=== PATIENT | female | born 1990 | race Caucasian/White ===

== ENCOUNTER 2018-09-15 10:30 | Emergency (ER) | payer MEDICAID, SELFPAY ==
[2018-09-15 10:32] VITALS: BP 123/52; PULSE 77; RESP 12; TEMP 35.8; O2SAT 98; BMI 28.4
--- NOTE | 2018-09-15 11:17 | ED.VISSUMM ---
- ER Visit Summary Date of Service: 09/15/18 Chief Complaint: Flank pain History of Present Illness: The patient is a 27 F to 12 weeks . Ab0. 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 Also gestational diabetes. States she has had nausea and vomiting throughout this . Today she had flank pain. Want to the [facility] found to have some blood in her urine and they sent her to be evaluated. She denies any dysuria. No history of stones. Denies any fever. She has had diarrhea also. Physical Examination: Well-appearing young female. Vital signs are stable. She is afebrile. She does not look septic or toxic. No acute distress. She is actively vomiting at times. H EENT exam unremarkable. Neck nontender no lymphadenopathy. Lungs clear to auscultation bilaterally. Heart regular rhythm no murmur. Abdomen is soft. Nondistended normal bowel sounds no peritoneal signs. Gravid nontender uterus. No right lower quadrant tenderness. Patient is moving all 4 extremities. They are neurovascularly intact. Calves nontender and no edema. Back exam nontender no CVA tenderness. Neurologically she is awake and alert with no focal motor deficit. Test Results: BC normal white count of 10. Hemoglobin 13. Electrolytes unremarkable gap of 10. Creatinine 0.54. Glucose is 77. UA normal. No nitrates. No white or red cells no bacteria. Given that the patient has normal workup. And that she is I do not feel that she needs a flank study. I think the risk of radiation to the unborn child outweighs any benefit at this time. Emergency Department Course and Treatment: Treated with IV fluids. IV Zofran. Screening labs will be obtained. Along with a urinalysis. On repeat exam she is doing well at 1227. She states she is feeling better. She and I discussed all of her test results. Treatment Plan: Zofran as needed for nausea. Fluids and rest. Follow-up with her INSTRUCTIONAL DESIGN SPECIALIST. Disposition: Discharge Impression: Acute left flank pain of uncertain etiology Acute nausea vomiting Currently 12 weeks History of -induced cardiomyopathy and prior gestational diabetes This note was generated with [employer] software. It may contain incorrect words, spelling, and punctuation that were not noted in review of the chart prior to signing ED Disposition - Plan for ED Patient: Chief Complaint: Flank Pain Referrals: Ming Maldonado MD [Primary Care Provider] -
[2018-09-15 11:30] LABS: Bacteria 0 SEEN /hpf (None Seen); Mucous, Urine 0 SEEN /hpf (<or=2+); White Blood Cells 0 SEEN /hpf (0-5)
[2018-09-15] MEDS: Ondansetron 4 MG/2 ML Vial IV (11:30)
[2018-09-15] MEDS: 0.9% Normal Saline 1,000 ML 1000 ML IV (11:30)
[2018-09-15 11:33] LABS: Absolute Lymphocyte Count 1.96 X10^3/ul (0.83-4.51); Absolute Neutrophil Count 6.9 X10^3/uL (2.0-7.7); Basophil# 0.05 X10^3/uL; Basophil% 0.5 % (0-1); Color, Urine Yellow (Yellow); Eosinophil# 0.54 X10^3/uL; Eosinophils% 5.4 % (0-5); Glucose, Dipstick Normal (Normal); Hematocrit 40.1 % (37-47); Hemoglobin 13.4 g/dl (12.0-15.0); Ketone-Dipstick Negative (Negative); Leukocyte Esterase-Dipstick Negative /ul (Negative); Lymphocyte # 1.96 X10^3/ul (4.0); Lymphocyte % 19.7 % (19-41); Mean Corp Hgb Conc 33.4 g/gl (32-36); Mean Corpuscular Hgb 27.5 pg (27.0-32.0); Mean Corpuscular Volume 82.2 fL (81-99); Mean Platelet Vol. 11.7 fl (6.2-12.0); Monocyte# 0.55 X10^3/uL; Monocyte% 5.5 % (0-10); Neutrophil # 6.85 X10^3/uL (2.7-7.7); Neutrophil % 68.7 % (47-70); Nitrite-Dipstick Negative (Negative); Occult Blood-Urine 10 /ul (Negative); POSITIVE COUNT NO; POSITIVE DIFFERENTIAL NO; POSITIVE MORPHOLOGY NO; Platelet Count 263 K/mm3 (150-450); Protein-Dipstick Negative (Negative); RBC Distribution Width CV 13.5 % (11.6-14.6); RBC Distribution Width SD 40.3 fl (35.1-43.9); Red Blood Count 4.88 M/mm3 (4.2-5.4); Specific Gravity, Urine 1.015 (1.002-1.030); Urine Bilirubin Dipstick Negative (Negative); Urine Clarity Sl. Cloudy (Clear); Urine Urobilinogen Normal (Normal)
[2018-09-15] MEDS: Morphine 4 MG/ML Syringe IV (11:38)
[2018-09-15 11:42] LABS: Red Blood Cells-Urine 0-5 SEEN /hpf (0-5); Squamous Epithelial Cells - UA 0-5 SEEN /hpf (5-10)
[2018-09-15 11:45] LABS: Anion Gap 10 (5-15); BUN 7 mg/dL (7-18); BUN/Creat Ratio 13.1 RATIO (10-20); Calcium,Total 8.6 mg/dL (8.5-10.1); Chloride 106 mmol/L (98-107); Creatinine, Serum 0.54 mg/dL (0.55-1.02); EST Glomerular Filtration Rate 142 mL/min (>60); Est Glom Filt Rate - Afr Amer 172 mL/min (>60); Glucose 77 mg/dL (74-106); Potassium 3.8 mmol/L (3.5-5.1); Sodium Level 139 mmol/L (136-145)
--- NOTE | 2018-09-15 12:30 | ED.DEP ---
ED Disposition - Plan for ED Patient: Disposition: Home or Assisted Living Chief Complaint: Flank Pain Instructions: ED Flank Pain Uncertain Cause Prescriptions: Ondansetron [Zofran Odt] 4 mg PO Q8H PRN PRN #10 tab PRN Reason: Nausea Referrals: Ming Maldonado MD [Primary Care Provider] - As Needed Additional Instructions: Fluids and rest. Zofran and/or Phenergan as needed for nausea. Follow-up with your FURNACE CARETAKER physician.
[2018-09-15] MEDS: proMETHazine 25 MG/ML Syringe 12.5 MG IV (13:08)
[2018-09-15 13:12] VITALS: BP 128/74; PULSE 91; RESP 16; O2SAT 98
== END 2018-09-15 13:14 | disposition home or self-care (01) ==
PROVIDERS: Emergency Provider Emergency Medicine; Family Provider Family Medicine; PCP Family Medicine
DX: O21.9 Vomiting of pregnancy, unspecified (principal); R10.9 Unspecified abdominal pain; Z3A.12 12 weeks gestation of pregnancy; Z86.32 Personal history of gestational diabetes
CPT/HCPCS: 80048; 81001; 85025; 99284; J7030; A4216; J2405

== ENCOUNTER 2019-03-08 22:00 | Outpatient (CLI) | payer MEDICAID, SELFPAY ==
[2019-03-08 22:23] VITALS: BMI 34.9
--- NOTE | 2019-03-12 12:50 | OB.TRI.NOTE ---
- Problem List (1) False labor Status: Acute History of Present Illness Date of Service: 03/08/19 Was patient seen by the physician?: No Reason For Visit: R/O LABOR Date of Service: 03/08/19 History of Present Illness: Presented to L&D with complaint of contractions. No LOF or vaginal bleeding. at 36w4d. Allergies No Known Allergies Allergy (Verified 03/10/19 18:37) NST - FHR Rate Baby A Baseline: 135 Variability:: Moderate Accelerations:: 15 x 15 Decelerations:: None NST Reactive:: Yes FHR Category:: Category I Uterine Activity:: Irregular contractions. Impression/Plan A: False labor P: 1) Labor instructions reviewed. 2) Fall up in office. D/C home.
== END 2019-03-09 00:55 | disposition home or self-care (01) ==
LOC: WPOUT 22:18 → WP 22:19
PROVIDERS: Family Provider Family Medicine; PCP Family Medicine; Visit Provider Obstetrics & Gynecology
DX: O47.03 False labor before 37 completed weeks of gestation, third trimester (principal); Z3A.36 36 weeks gestation of pregnancy
CPT/HCPCS: 59025; 59050; 99218; G0378

== ENCOUNTER 2019-03-09 18:15 | Outpatient (CLI) | payer MEDICAID, SELFPAY ==
[2019-03-08 22:23] VITALS: BMI 34.9
[2019-03-09] MEDS: 0.9% Normal Saline 1,000 ML 500 ML IV (18:55)
[2019-03-09 19:12] LABS: Hematocrit 36.2 % (37-47); Hemoglobin 12.1 g/dl (12.0-15.0); Mean Corp Hgb Conc 33.4 g/gl (32-36); Mean Corpuscular Hgb 27.4 pg (27.0-32.0); Mean Corpuscular Volume 81.9 fL (81-99); Mean Platelet Vol. 10.7 fl (6.2-12.0); Platelet Count 251 K/mm3 (150-450); RBC Distribution Width CV 14.9 % (11.6-14.6); RBC Distribution Width SD 44.6 fl (35.1-43.9); Red Blood Count 4.42 M/mm3 (4.2-5.4)
[2019-03-09 19:13] LABS: Scan Indicated on CBC? Y/N NO
[2019-03-09] MEDS: proMETHazine 25 MG/ML Syringe IV (19:29)
[2019-03-09 19:34] LABS: ALB/GLOB Ratio 0.6 RATIO (0.9-2.4); AST(SGOT) 15 U/L (15-37); Alanine Aminotransfer ALT/SGPT 11 U/L (13-56); Albumin, Serum 2.7 g/dL (3.2-5.0); Alkaline Phosphatase 168 U/L (45-117); Anion Gap 9 (5-15); BUN 5 mg/dL (7-18); BUN/Creat Ratio 10.2 RATIO (10-20); Bilirubin, Direct 0.13 mg/dL (0.00-0.30); Calcium,Total 8.6 mg/dL (8.5-10.1); Chloride 106 mmol/L (98-107); Creatinine, Serum 0.49 mg/dL (0.55-1.02); EST Glomerular Filtration Rate 158 mL/min (>60); Est Glom Filt Rate - Afr Amer 191 mL/min (>60); Globulin 4.8 g/dL (2.2-4.2); Glucose 79 mg/dL (74-106); Potassium 3.4 mmol/L (3.5-5.1); Protein, Total 7.5 g/dL (6.4-8.2); Sodium Level 139 mmol/L (136-145)
[2019-03-09 22:02] VITALS: BMI 33.7
[2019-03-09 22:06] LABS: Group B Strep DNA By PCR Negative (Negative); Internal Control PASS; Probe Check PASS; Specimen Processing Control PASS
[2019-03-09] MEDS: Ondansetron 4 MG/2 ML Vial IV (22:07)
--- NOTE | 2019-03-25 16:48 | OB.TRI.NOTE ---
History of Present Illness Reason For Visit: R/O LABOR Date of Service: 03/09/19 Allergies No Known Allergies Allergy (Verified 03/12/19 22:24) Laboratory Studies: Laboratory Tests 03/09/19 03/09/19 03/09/19 Range/Units 20:00 18:55 18:55 WBC 17.0 H (4.4-11.0) K/mm3 RBC 4.42 (4.2-5.4) M/mm3 Hgb 12.1 (12.0-15.0) g/dl Hct 36.2 L (37-47) % MCV 81.9 (81-99) fL MCH 27.4 (27.0-32.0) pg MCHC 33.4 (32-36) g/gl RDW 14.9 H (11.6-14.6) % RDW Differential 44.6 H (35.1-43.9) fl Plt Count 251 (150-450) K/mm3 MPV 10.7 (6.2-12.0) fl Sodium 139 (136-145) mmol/L Potassium 3.4 L (3.5-5.1) mmol/L Chloride 106 (98-107) mmol/L Carbon Dioxide 24.0 (21.0-32.0) mmol/L Anion Gap 9 (5-15) BUN 5 L (7-18) mg/dL Creatinine 0.49 L (0.55-1.02) mg/dL Est GFR (MDRD) Af Amer 191 (>60) mL/min Est GFR (MDRD) Non-Af 158 (>60) mL/min BUN/Creatinine Ratio 10.2 (10-20) RATIO Glucose 79 (74-106) mg/dL Uric Acid 4.0 (2.6-6.0) mg/dL Calcium 8.6 (8.5-10.1) mg/dL Total Bilirubin 0.50 (0.20-1.00) mg/dL Direct Bilirubin 0.13 (0.00-0.30) mg/dL AST 15 (15-37) U/L ALT 11 L (13-56) U/L Alkaline Phosphatase 168 H (45-117) U/L Total Protein 7.5 (6.4-8.2) g/dL Albumin 2.7 L (3.2-5.0) g/dL Globulin 4.8 H (2.2-4.2) g/dL Albumin/Globulin Ratio 0.6 L (0.9-2.4) RATIO Group B Strep DNA Negative (Negative) Specimen Comment Not Reportable Impression/Plan NST for false labor
== END 2019-03-09 22:30 | disposition home or self-care (01) ==
LOC: WPOUT 18:20 → WP 18:21
PROVIDERS: Family Provider Family Medicine; PCP Family Medicine; Referring Provider Obstetrics & Gynecology; Visit Provider Obstetrics & Gynecology
DX: O47.9 False labor, unspecified (principal); Z3A.00 Weeks of gestation of pregnancy not specified
CPT/HCPCS: 96361 ×2; 96374; 96375; 36415; 59025; 59050; 80053; 80076; 84550; 85027; 87081; 87653; 99218; J7030; G0378; J2405

== ENCOUNTER 2019-03-10 14:13 | Outpatient (CLI) | payer MEDICAID, SELFPAY ==
[2019-03-09 22:02] VITALS: BMI 33.7
--- NOTE | 2019-03-10 17:54 | OB.TRI.NOTE ---
History of Present Illness Date of Service: 03/10/19 Was patient seen by the physician?: Yes Reason For Visit: R/O LABOR Date of Service: 03/10/19 Final JUANITO: 04/01/19 Gestational age: 36 Weeks and 6 Days History of Present Illness: 28-year-old 3 para 2 at 36-6/7 weeks gestation complaining of contractions for 2 days. She was found to be slightly changed in the office today from her exam last night. She continues to contract regularly. She states that the contractions are getting worse and she would desire an epidural. She denies any vaginal bleeding or leaking of fluid. Allergies No Known Allergies Allergy (Verified 09/15/18 10:30) Physical Exam General: Alert, Cooperative, - - Uncomfortable breathing through contractions Abdomen: Soft, Gravid, Appropriate for Gestational Age Extremities:: Other - Edema 1+ Estimated gestational size: Appropriate for gestational size Presentation: Cephalic Cervix Dilation (cm): 4 - Posterior, head is ballotable. Station: -3 Effacement (%): 60 NST - FHR Rate Baby A Baseline: Normal Variability:: Moderate Accelerations:: 15 x 15 Decelerations:: None NST Reactive:: Yes, Appropriate for gestational age FHR Category:: Category I Uterine Activity:: Contractions approximately every 4-5 minutes, tocometer difficult to and separate due to patient being uncomfortable Impression/Plan 28-year-old 3 para 2 at 36-6/7 weeks gestation with threatened labor. No significant cervical change really since last night. Contractions are difficult to interpret on the monitor due to patient moving around. heart tones were reactive and reassuring. Discussed with the patient option of continued monitoring versus therapeutic rest. Patient elects for this. Will give morphine and Vistaril DC home. Follow-up in 2-5 days or as needed.
[2019-03-10] MEDS: hydrOXYzine 50 MG/ML Vial IM (18:53)
[2019-03-10] MEDS: Morphine 4 MG/ML Syringe 8 MG IM (18:54)
== END 2019-03-10 19:05 | disposition home or self-care (01) ==
LOC: WPOUT 14:31 → WP 14:32
PROVIDERS: Family Provider Family Medicine; PCP Family Medicine; Referring Provider Obstetrics & Gynecology; Visit Provider Obstetrics & Gynecology
DX: O60.03 Preterm labor without delivery, third trimester (principal); Z3A.36 36 weeks gestation of pregnancy
CPT/HCPCS: 59025; 59050; 96372; 99218; G0378

== ENCOUNTER 2019-03-12 21:20 | Outpatient (CLI) | payer MEDICAID, SELFPAY ==
[2019-03-12 22:22] VITALS: BMI 34.0
[2019-03-12 22:33] LABS: ROM Internal Control Test YES-OK TO RESULT pt. (Internal QC); ROM Patient Test Negative (Negative)
[2019-03-12] MEDS: hydrOXYzine PAM 25 MG Capsule 50 MG PO (23:01)
--- NOTE | 2019-03-14 11:22 | OB.TRI.NOTE ---
- Problem List (1) False labor Status: Acute History of Present Illness Date of Service: 03/12/19 Was patient seen by the physician?: No Reason For Visit: RULE OUT Date of Service: 03/12/19 Final JUANITO: 04/01/19 Gestational age: 37 Weeks and 3 Days History of Present Illness: Presented with complaint of contractions. No vaginal bleeding or leakage of fluid. Allergies No Known Allergies Allergy (Verified 03/12/19 22:24) Laboratory Studies: Laboratory Tests 03/12/19 Range/Units 21:45 Vag Amniotic Fld Detect Negative (Negative) NST - FHR Rate Baby A Baseline: 145 Variability:: Moderate Accelerations:: 15 x 15 Decelerations:: None NST Reactive:: Yes Uterine Activity:: Irregular Impression/Plan A: False Labor P: 1) False labor, no cervical change or changes in contractions. 2) Follow up in office as scheduled 3) D/C home.
== END 2019-03-12 23:11 | disposition home or self-care (01) ==
LOC: WPOUT 21:49 → WP 21:50
PROVIDERS: Family Provider Family Medicine; PCP Family Medicine; Referring Provider Obstetrics & Gynecology; Visit Provider Obstetrics & Gynecology
DX: O47.1 False labor at or after 37 completed weeks of gestation (principal); Z3A.37 37 weeks gestation of pregnancy
CPT/HCPCS: 59025; 59050; 84112; 99218; G0378

== ENCOUNTER 2019-03-26 08:50 | Inpatient (IN) | payer MEDICAID, SELFPAY ==
[2019-03-26 09:06] VITALS: BMI 34.3
[2019-03-26] MEDS: Lactated Ringers 1,000 ML 50 ML IV ×3 (09:25→15:53)
[2019-03-26 09:51] LABS: Absolute Lymphocyte Count 2.12 X10^3/ul (0.83-4.51); Absolute Neutrophil Count 9.3 X10^3/uL (2.0-7.7); Basophil# 0.02 X10^3/uL; Basophil% 0.2 % (0-1); Eosinophil# 0.23 X10^3/uL; Eosinophils% 1.8 % (0-5); Hematocrit 37.8 % (37-47); Hemoglobin 12.5 g/dl (12.0-15.0); Lymphocyte # 2.12 X10^3/ul (4.0); Mean Corp Hgb Conc 33.1 g/gl (32-36); Mean Corpuscular Hgb 27.3 pg (27.0-32.0); Mean Corpuscular Volume 82.5 fL (81-99); Mean Platelet Vol. 11.5 fl (6.2-12.0); Monocyte# 0.73 X10^3/uL; Monocyte% 5.9 % (0-10); Neutrophil # 9.31 X10^3/uL (2.7-7.7); Neutrophil % 74.7 % (47-70); POSITIVE COUNT NO; POSITIVE DIFFERENTIAL NO; POSITIVE MORPHOLOGY NO; Platelet Count 287 K/mm3 (150-450); RBC Distribution Width CV 15.3 % (11.6-14.6); RBC Distribution Width SD 46.2 fl (35.1-43.9); Red Blood Count 4.58 M/mm3 (4.2-5.4); White Blood Count 12.5 K/mm3 (4.4-11.0)
[2019-03-26 10:11] LABS: Amphetamine Urine VISTA NEGATIVE (<1000 ng/mL); Barbiturate Urine VISTA NEGATIVE (< 200 ng/mL); Benzodiazepine Urine VISTA NEGATIVE (< 200 ng/mL); Cocaine Urine VISTA NEGATIVE (< 300 ng/mL); Ecstacy Urine VISTA NEGATIVE (< 500 ng/mL); Methadone Urine VISTA NEGATIVE (< 300 ng/mL); PCP Urine VISTA NEGATIVE (< 25 ng/mL); THC Urine VISTA POSITIVE (< 50 ng/mL); Vista UDS pH Range 7
[2019-03-26] MEDS: Oxytocin 30 units/NS 500 ml 30 UNITS/500 ML IV.SOLN IV (10:34)
--- NOTE | 2019-03-26 11:10 | PCM.HP.OB ---
- Problem List (1) Multiparity Status: Acute History Date of Admission: 03/26/19 Final JUANITO: 04/01/19 Gestational age: 39 Weeks and 1 Days History of this : This is a 28 year-old, G3, P2002, at 39 weeks gestational age who presents for an elective IOL. She is doing well. No ctx, vb, lof. Good FM. Having daily N/V and is uncomfortable in the because of this per her report. Medical History: Medical History (Last Updated 03/26/19 @ 11:13 by Cookie Hauser DO) Anxiety F41.9 Asthma J45.909 Down syndrome, child of prior , currently O09.299 History of cardiomyopathy Z86.79 History of depression Z87.59, Z86.59 Marijuana use F12.90 Allergies No Known Allergies Allergy (Verified 03/12/19 22:24) Home Medications: Home Medications Vits [Prenatabs FA] 1 tablet PO DAILY 09/15/18 Albuterol Inhaler 2 puff INHALATION DAILY PRN PRN 03/12/19 Budesonide Inhaler 180 mcg [Pulmicort Inhaler 180 mcg] 1 puff INHALATION PRN PRN 03/26/19 Smoking Status: Never smoker Alcohol: None Substance Use Type: Marijuana Number of Fetus(es): 1 Heart Tracin/mod frank/+accels/no decels TOCO Analysis: No ctx's prior to pitocin History Past Pregnancies: Past Pregnancies Delivery Date Name GA/Weeks Outcome Route Weight Infant Gender Labor Length Anesthesia Delivery Location Provider FOB 37 Down syndrome Possible cardiomyopathy 9lb 38 7lb Labs: 1 hr GTT 116 Hgb 11.9 UDS +marijuana [id number] neg AFP neg Syphilis NR RI Hep B neg HIV neg Rh positive GC/CT neg Echo normal with EF 60% EKG normal Stress test normal Expected Infant Delivery Method: Spontaneous Vaginal Review of Systems Genitourinary: Reports: - - No regular ctx's, vb, lof. Good FM Physical Exam General: Alert, No apparent distress HEENT: Atraumatic Lungs: - - No increased resp effort Abdomen: Soft, Non Tender, Gravid Extremities:: No edema Neurological: Neuro grossly intact EMBRYOLOGY TEACHER: Normal external genitalia Estimated gestational size: Appropriate for gestational size Presentation: Cephalic Cervix Dilation (cm): 4 - per Dr. Gore Assessment/Plan All Active Problems False labor (Acute) Multiparity (Acute) Pyelonephritis (Acute) Flank pain (Acute) This is a 28 year-old, G3, P2002, at 39 weeks gestational age who presents for elective IOL. - H/o asthma: Continue home medications - H/o possible cardiomyopathy after 1st delivery. Likely fluid overload. Normal EKG, echo, and stress test in this - Last marijuana use a few days ago. UDS on admission - Pitocin induction - Pt plans for epidural - Routine intrapartum care
--- NOTE | 2019-03-26 11:15 | HP.PCM_ITS ---
- Problem List (1) Multiparity Status: Acute History Date of Admission: 03/26/19 Final JUANITO: 04/01/19 Gestational age: 39 Weeks and 1 Days History of this : This is a 28 year-old, G3, P2002, at 39 weeks gestational age who presents for an elective IOL. She is doing well. No ctx, vb, lof. Good FM. Having daily N/V and is uncomfortable in the because of this per her report. Medical History: Medical History (Last Updated 03/26/19 @ 11:13 by Cookie Hauser DO) Anxiety F41.9 Asthma J45.909 Down syndrome, child of prior , currently O09.299 History of cardiomyopathy Z86.79 History of depression Z87.59, Z86.59 Marijuana use F12.90 Allergies No Known Allergies Allergy (Verified 03/12/19 22:24) Home Medications: Home Medications Vits [Prenatabs FA] 1 tablet PO DAILY 09/15/18 Albuterol Inhaler 2 puff INHALATION DAILY PRN PRN 03/12/19 Budesonide Inhaler 180 mcg [Pulmicort Inhaler 180 mcg] 1 puff INHALATION PRN PRN 03/26/19 Smoking Status: Never smoker Alcohol: None Substance Use Type: Marijuana Number of Fetus(es): 1 Heart Tracin/mod frank/+accels/no decels TOCO Analysis: No ctx's prior to pitocin History Past Pregnancies: Past Pregnancies Delivery Date Name GA/Weeks Outcome Route Weight Infant Gender Labor Length Anesthesia Delivery Location Provider FOB 37 Down syndrome Possible cardiomyopathy 9lb 38 7lb Labs: 1 hr GTT 116 Hgb 11.9 UDS +marijuana [id number] neg AFP neg Syphilis NR RI Hep B neg HIV neg Rh positive GC/CT neg Echo normal with EF 60% EKG normal Stress test normal Expected Infant Delivery Method: Spontaneous Vaginal Review of Systems Genitourinary: Reports: - - No regular ctx's, vb, lof. Good FM Physical Exam General: Alert, No apparent distress HEENT: Atraumatic Lungs: - - No increased resp effort Abdomen: Soft, Non Tender, Gravid Extremities:: No edema Neurological: Neuro grossly intact AS400 ADMINISTRATOR: Normal external genitalia Estimated gestational size: Appropriate for gestational size Presentation: Cephalic Cervix Dilation (cm): 4 - per Dr. Gore Assessment/Plan All Active Problems False labor (Acute) Multiparity (Acute) Pyelonephritis (Acute) Flank pain (Acute) This is a 28 year-old, G3, P2002, at 39 weeks gestational age who presents for elective IOL. - H/o asthma: Continue home medications - H/o possible cardiomyopathy after 1st delivery. Likely fluid overload. Normal EKG, echo, and stress test in this - Last marijuana use a few days ago. UDS on admission - Pitocin induction - Pt plans for epidural - Routine intrapartum care
--- NOTE | 2019-03-26 11:53 | PCM.PN.BLA ---
Progress Note At bedside to check on pt. She is feeling uncomfortable with ctx's. Pit at 2 mu/min. Cvx 3-4/40/-3, posterior. Unable to AROM pt at this time due to cvx being posterior and pt discomfort. She desires epidural. Will attempt AROM later. Continue current management
[2019-03-26] MEDS: fentaNYL-bupivacaine (epidural) 100 ML BAG EPIDURAL ×2 (12:54→16:54)
[2019-03-26] MEDS: Mag Hydrox/Al Hydrox/Simeth 30 ML UDC PO (16:54)
[2019-03-26] MEDS: Oxytocin 30 units/NS 500 ml 30 UNITS/500 ML IV.SOLN 334 UNITS IV (17:28)
--- NOTE | 2019-03-26 17:51 | PCM.OPRPT ---
Problem List (1) Multiparity Status: Acute Report of Operation Date of Procedure: 03/26/19 Pre-Operative Diagnosis: Multiparity, 39 week gestation, patient desires elective IOL Post-Operative Diagnosis: As above Surgery/Procedure Performed:: Type of Anesthesia:: Epidural Specimen's removed: Placenta Estimated Blood Loss (mL): 300 Grafts/Implants Used: None - Complications None - Admit VTE Documentation VTE Present on Admission: No VTE Mechan Device Prophylaxis: None VTE Pharm Prophylaxis ordered?: No Vaginal Delivery Maternal Presentation: Elective Induction Method of Induction: Pitocin, Amniotomy Amniotic Membrane Rupture Type: Artificial Amniotic Fluid Description: Clear Final JUANITO: 04/01/19 Gestational age: 39 Weeks and 1 Days Date of Procedure: 03/26/19 Pre-Operative Diagnosis: Multiparity, 39 week gestation, patient desires elective IOL Post-Operative Diagnosis: As above Surgery/ Procedure Performed: Spontaneous Vaginal Delivery Type of Anesthesia: Epidural Description of Procedure: Patient complete and pushing. Head, anterior shoulder, posterior shoulder delivered without force or delay. VFI delivered atraumatically and placed on mother's abdomen. Cord clamped and cut after 60 sec delay by FOB. Placenta delivered intact with fundal massage. Placenta normal in appearance with a 3 vessel cord. Uterus explored x 1 and no retained placenta noted. Fundus firm and bleeding hemostatic. No lacerations/tears noted. Presentation: Vertex Placental Delivery Description: Expressed Cord Vessel Description: 3 Vessels Cord Entanglement: None Drain: Thomas to straight drain Estimated Blood Loss: 300 Infant A gender: Female (1 minute): 9 (5 minute): 9 Episiotomy Description: None Laceration: None Medications given after delivery: IV Pitocin Complications: None Baby B - Information Amniotic Membrane Rupture Type: Artificial Presentation: Vertex - Operative Information Cord Entanglement: None Cord Vessel Description: 3 Vessels B gender: Female (1 minute): 9 (5 minute): 9
--- NOTE | 2019-03-26 17:56 | OP.PCM_ITS ---
Problem List (1) Multiparity Status: Acute Report of Operation Date of Procedure: 03/26/19 Pre-Operative Diagnosis: Multiparity, 39 week gestation, patient desires elective IOL Post-Operative Diagnosis: As above Surgery/Procedure Performed:: Type of Anesthesia:: Epidural Specimen's removed: Placenta Estimated Blood Loss (mL): 300 Grafts/Implants Used: None - Complications None - Admit VTE Documentation VTE Present on Admission: No VTE Mechan Device Prophylaxis: None VTE Pharm Prophylaxis ordered?: No Vaginal Delivery Maternal Presentation: Elective Induction Method of Induction: Pitocin, Amniotomy Amniotic Membrane Rupture Type: Artificial Amniotic Fluid Description: Clear Final JUANITO: 04/01/19 Gestational age: 39 Weeks and 1 Days Date of Procedure: 03/26/19 Pre-Operative Diagnosis: Multiparity, 39 week gestation, patient desires elective IOL Post-Operative Diagnosis: As above Surgery/ Procedure Performed: Spontaneous Vaginal Delivery Type of Anesthesia: Epidural Description of Procedure: Patient complete and pushing. Head, anterior shoulder, posterior shoulder del ivered without force or delay. VFI delivered atraumatically and placed on mother's abdomen. Cord clamped and cut after 60 sec delay by FOB. Placenta delivered intact with fundal massage. Placenta normal in appearance with a 3 vessel cord. Uterus explored x 1 and no retained placenta noted. Fundus firm and bleeding hemostatic. No lacerations/tears noted. Presentation: Vertex Placental Delivery Description: Expressed Cord Vessel Description: 3 Vessels Cord Entanglement: None Drain: Thomas to straight drain Estimated Blood Loss: 300 A gender: Female (1 minute): 9 (5 minute): 9 Episiotomy Description: None Laceration: None Medications given after delivery: IV Pitocin Complications: None Baby B - Information Amniotic Membrane Rupture Type: Artificial Presentation: Vertex - Operative Information Cord Entanglement: None Cord Vessel Description: 3 Vessels Infant B gender: Female (1 minute): 9 (5 minute): 9
[2019-03-26] MEDS: Oxytocin 30 units/NS 500 ml 30 UNITS/500 ML IV.SOLN 167 UNITS IV (18:00)
[2019-03-26] MEDS: Ibuprofen 600 MG Tablet PO (18:44)
--- NOTE | 2019-03-26 21:44 | NURSING ---
Epidural catheter removed, blue tip intact. pt's legs still slightly numb and heavy. New gown, pad, ice pack, and blanket given to pt. RN will wait another hour until her leg numbness comes back. Thomas catheter remains in place until able to get up to BR. pt denies other needs at this time.
[2019-03-26 23:45] VITALS: BP 112/57; PULSE 79; RESP 16; TEMP 36.6
[2019-03-27 04:00] VITALS: BP 115/57; PULSE 76; RESP 15; TEMP 36.3
[2019-03-27] MEDS: Ibuprofen 600 MG Tablet PO ×3 (04:02→18:32)
[2019-03-27] MEDS: Acetaminophen 500 MG Tablet 1000 MG PO ×2 (07:49→16:03)
[2019-03-27 08:00] VITALS: BP 112/59; PULSE 85; RESP 16; TEMP 36.8; O2SAT 95
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
--- NOTE | 2019-03-27 11:11 | PCM.PN.OB ---
Patient Problems: Active and Suspected Problems (Last Updated 03/26/19 @ 11:13 by Cookie Hauser DO) Multiparity (Acute) Subjective: Patient doing well. Having cramping that is worse with . No CP, SOB, lightheadedness, dizziness, leg pain. Gen reg diet without N/V. Ambulating and voiding without difficulty. She is undecided if she wants to go home today or tomorrow due to the cramping - Physical Exam General: Alert, No apparent distress HEENT: Atraumatic Lungs: - - No increased resp effort Abdomen: Soft, - - ATTP, FF@U Extremities: No edema, No Calf Tenderness Skin: No rashes Neurological: Neuro grossly intact Psych/Mental Status: Normal Affect, Appropriate Vital Signs Temp Pulse Resp BP 97.4 F L 76 15 115/57 L 03/27/19 04:00 03/27/19 04:00 03/27/19 04:00 03/27/19 04:00 Weight: 200 lb Body Mass Index (BMI) 34.3 Intake and Output for Last 24 Hours 03/25/19 03/26/19 03/27/19 23:59 23:59 23:59 Intake Total 3347 / 3347 Output Total 3000 / 3000 600 / 600 Balance 347 / 347 -600 / -600 Medical Necessity - Tobacco Use Smoking Status: Never smoker Assessment/Plan All Active Problems (Last Updated 03/26/19 @ 11:13 by Cookie Hauser DO) Flank pain (Acute) Pyelonephritis (Acute) False labor (Acute) Multiparity (Acute) PPD#1 s/p - Doing well - - Dispo: Possible d/c home today if patient desires. Routine care
--- NOTE | 2019-03-27 11:14 | DCINST_ITS ---
Discharge Diet: No Restrictions Discharge Activity: Return to Normal Activity, May Shower, May Take a Tub Bath May resume sexual activity in: 6 weeks Weight Bearing Status: Weight bearing as tolerated Lifting Restrictions: None Call your doctor if you observe: Fever of 101 or Higher, Inability to urinate, Inability to have a bowel movement, Using more than one pad per hour, Shortness of breath, Dizziness, Chest pain, Increased palpitations (irregular heartbeat), Calf discomfort, Uncontrolled pain Instructions: After a Vaginal Additional Instructions: If you experience any of the following, contact your healthcare provider. * Bleeding that soaks a pad every hour for 2 hours * Fever 100.4 or higher * Unrelieved incision or abdominal pain * Swelling, redness, discharge or bleeding from your incision or episiotomy site * Your incision begins to separate * Problems urinating (including inability to urinate or burning while urinating). * Visual changes * Severe headache * Flu-like symptoms * Pain or redness in one of both of your breasts * Pain, warmth, tenderness or swelling in your legs, especially the calf area * Frequent nausea and vomiting * Symptoms of depression or anxiety If you experience any of the following, call 911 or go to the nearest Emergency Room. * Chest pain * Problems breathing * Seizure activity * Partial or complete paralysis of a body part, slurred speech, weakness or drooping of the face, or a sudden inability to walk or hold your balance Allergies/Adverse Reactions: Allergies No Known Allergies Allergy (Verified 03/12/19 22:24) Medications to take at Discharge Vits [Prenatabs FA] 1 tablet PO DAILY 09/15/18 Albuterol Inhaler 2 puff INHALATION DAILY PRN PRN 03/12/19 Budesonide Inhaler 180 mcg [Pulmicort Inhaler 180 mcg] 1 puff INHALATION PRN PRN 03/26/19 Please Follow Up With: Cookie Hauser DO When: 6 week visit or sooner if needed Test Results: Test results from this visit will be discussed in further detail at your follow- up appointment, if applicable.
[2019-03-27 12:16] VITALS: BP 122/63; PULSE 69; RESP 16; TEMP 36.8; O2SAT 98
[2019-03-27 18:00] VITALS: TEMP 36.7
[2019-03-27 18:05] VITALS: BP 119/60; PULSE 75; RESP 16; O2SAT 97
--- NOTE | 2019-03-27 18:54 | NURSING ---
Jeanette with case management in to see the pt earlier in the shift. Jeanette did state to this nurse that childrens services would be following up Friday, and Bhupendra would be calling her today. Pt made aware of this.
[2019-03-27 20:00] VITALS: BP 105/47; PULSE 86; RESP 18; TEMP 37.1
[2019-03-27] MEDS: oxyCODONE 5 MG Tablet PO (22:00)
[2019-03-28] MEDS: Acetaminophen 500 MG Tablet 1000 MG PO ×2 (00:09→09:44)
[2019-03-28 02:15] VITALS: BP 107/48; PULSE 68; RESP 18; TEMP 36.8
[2019-03-28] MEDS: Ibuprofen 600 MG Tablet PO (07:22)
[2019-03-28 08:00] VITALS: BP 110/59; PULSE 80; RESP 16; TEMP 36.7; O2SAT 98
--- NOTE | 2019-03-28 08:16 | PCM.PN.OB ---
Patient Problems: Active and Suspected Problems (Last Updated 03/26/19 @ 11:13 by Cookie Hauser DO) Multiparity (Acute) Subjective: Patient doing well. Cramping has improved. Pain controlled. Gen reg diet without N/V. Ambulating and voiding without difficulty. Had a BM. No CP, SOB, leg pain. . Feels ready to go home. Lochia normal - Physical Exam General: Alert, No apparent distress HEENT: Atraumatic Lungs: - - No increased resp effort Abdomen: Soft, - - ATTP, FF@U-1 Extremities: No Calf Tenderness Skin: No rashes Neurological: Neuro grossly intact Psych/Mental Status: Normal Affect, Appropriate Vital Signs Temp Pulse Resp BP Pulse Ox 98.1 F 80 16 110/59 L 98 03/28/19 08:00 03/28/19 08:00 03/28/19 08:00 03/28/19 08:00 03/28/19 08:00 Oxygen Delivery Method Room Air Weight: 200 lb Body Mass Index (BMI) 34.3 Intake and Output for Last 24 Hours 03/26/19 03/27/19 03/28/19 23:59 23:59 23:59 Intake Total 3347 / 3347 Output Total 3000 / 3000 600 / 600 Balance 347 / 347 -600 / -600 Medical Necessity - Tobacco Use Smoking Status: Never smoker Assessment/Plan All Active Problems (Last Updated 03/26/19 @ 11:13 by Cookie Hauser DO) Flank pain (Acute) Pyelonephritis (Acute) False labor (Acute) Multiparity (Acute) PPD#2 s/p - Doing well - Dispo: D/c home today. Discharge instructions reviewed
--- NOTE | 2019-03-28 08:19 | DCINST_ITS ---
Discharge Diet: No Restrictions Discharge Activity: Return to Normal Activity, May Shower, May Take a Tub Bath May resume sexual activity in: 6 weeks Weight Bearing Status: Weight bearing as tolerated Lifting Restrictions: None Call your doctor if you observe: Fever of 101 or Higher, Inability to urinate, Inability to have a bowel movement, Using more than one pad per hour, Shortness of breath, Dizziness, Chest pain, Increased palpitations (irregular heartbeat), Calf discomfort, Uncontrolled pain Instructions: After a Vaginal Additional Instructions: If you experience any of the following, contact your healthcare provider. * Bleeding that soaks a pad every hour for 2 hours * Fever 100.4 or higher * Unrelieved incision or abdominal pain * Swelling, redness, discharge or bleeding from your incision or episiotomy site * Your incision begins to separate * Problems urinating (including inability to urinate or burning while urinating). * Visual changes * Severe headache * Flu-like symptoms * Pain or redness in one of both of your breasts * Pain, warmth, tenderness or swelling in your legs, especially the calf area * Frequent nausea and vomiting * Symptoms of depression or anxiety If you experience any of the following, call 911 or go to the nearest Emergency Room. * Chest pain * Problems breathing * Seizure activity * Partial or complete paralysis of a body part, slurred speech, weakness or drooping of the face, or a sudden inability to walk or hold your balance Allergies/Adverse Reactions: Allergies No Known Allergies Allergy (Verified 03/12/19 22:24) Medications to take at Discharge Vits [Prenatabs FA] 1 tablet PO DAILY 09/15/18 Albuterol Inhaler 2 puff INHALATION DAILY PRN PRN 03/12/19 Budesonide Inhaler 180 mcg [Pulmicort Inhaler 180 mcg] 1 puff INHALATION PRN PRN 03/26/19 Please Follow Up With: Cookie Hauser DO When: 1-2 weeks, and 6 weeks Test Results: Test results from this visit will be discussed in further detail at your follow- up appointment, if applicable. Proposed Discharge Date: 03/28/19
== END 2019-03-28 11:20 | disposition home or self-care (01) | DRG 560 ==
PROVIDERS: Admitting Provider Obstetrics & Gynecology; Referring Provider Obstetrics & Gynecology; Visit Provider Obstetrics & Gynecology
DX: O75.89 Other specified complications of labor and delivery (principal); F12.90 Cannabis use, unspecified, uncomplicated; J45.909 Unspecified asthma, uncomplicated; O24.313 Unspecified pre-existing diabetes mellitus in pregnancy, third trimester; E11.9 Type 2 diabetes mellitus without complications; Z3A.39 39 weeks gestation of pregnancy; Z37.0 Single live birth; Z87.59 Personal history of other complications of pregnancy, childbirth and the puerperium; Z86.59 Personal history of other mental and behavioral disorders
CPT/HCPCS: 59025; 59050; 80307; 85025; 86850; 86900; 99218; J7120; G0378

== ENCOUNTER 2020-05-16 12:43 | Emergency (ER) | payer MEDICAID, SELFPAY ==
[2020-05-16 12:44] VITALS: BP 143/89; PULSE 88; RESP 20; TEMP 36.7; O2SAT 97; BMI 32.5
[2020-05-16] MEDS: Ipratropium/Albuterol Sulfate 3 ML AMPUL.NEB INHALATION (13:24)
--- NOTE | 2020-05-16 13:26 | ED.DCSUM_ITS ---
- ER Visit Summary Date of Service: 05/16/20 Chief Complaint: Asthma History of Present Illness: The patient is a 29 F who presents with shortness of breath that began yesterday. Patient states she has a history of asthma. Patient states she has been using her home aerosols and inhalers with some relief. Patient states the wheezing has been persistent. Patient admits to a cough but denies any sputum production. Patient admits to some rhinorrhea. Patient denies any sore throat. Patient admits to some aching across her chest. Patient denies any sick exposures. Patient has been avoiding public places as much as she can. Patient states she has been wearing her mask in public. Physical Examination: Vital signs are stable. Patient is afebrile. Patient is in no acute distress. Oral mucosa is pink and moist. Neck is supple. Trachea is midline. There is no JVD. Heart was regular rate and rhythm. Lungs showed mild expiratory wheezing. There is good respiratory effort noted. Abdomen is soft. Bowel sounds are normal. There is no tenderness. Cranial nerves II through XII are intact. There are no focal motor or sensory deficits noted. Test Results: Portable chest x-ray was obtained. There is no acute cardiopulmonary process. This was interpreted by myself and the radiologist. Emergency Department Course and Treatment: Patient was given a DuoNeb aerosol here. Patient was given a dose of prednisone. Patient is feeling somewhat better on reevaluation. Patient's wheezing has resolved. Patient was given a prescription for prednisone. Patient was instructed to follow-up with her [facility] physician in 5 to 7 days. Patient understood and was agreeable with this plan. All questions were answered. Disposition: Discharge home Impression: Asthma exacerbation This note was generated with [employer] dictation software. It may contain incorrect words, spelling, and punctuation that were not noted in review of the chart prior to signing ED Disposition - Plan for ED Patient: Disposition: Home or Assisted Living Diagnosis: Asthma exacerbation Instructions: ED REACTIVE AIRWAY DISEASE Adult Prescriptions: Prednisone [Deltasone] 60 mg PO DAILY #15 tab Prescription Printed Referrals: Ming Maldonado MD [Primary Care Provider] - 5-7 Days
[2020-05-16 13:28] VITALS: PULSE 80; RESP 24
--- NOTE | 2020-05-16 13:31 | CPS ---
Patient vomited with treatment
[2020-05-16] MEDS: predniSONE 20 MG Tablet 60 MG PO (13:49)
[2020-05-16 13:55] VITALS: O2SAT 97
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
[2020-05-16 14:53] VITALS: BP 127/68; PULSE 71; RESP 18; O2SAT 98
== END 2020-05-16 14:53 | disposition home or self-care (01) ==
PROVIDERS: Emergency Provider Emergency Medicine; PCP Family Medicine
DX: J45.901 Unspecified asthma with (acute) exacerbation (principal)
CPT/HCPCS: 71045; 94640; 99283

== ENCOUNTER 2021-08-31 12:12 | Emergency (ER) | payer MEDICAID, SELFPAY ==
[2021-08-31 12:16] VITALS: BP 137/83; PULSE 88; RESP 18; TEMP 36.6; O2SAT 95; BMI 32.5
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
[2021-08-31 14:24] VITALS: BP 111/70; PULSE 73; RESP 16; O2SAT 100
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
[2021-08-31] MEDS: Ondansetron 4 MG/2 ML Vial IV (14:55)
[2021-08-31] MEDS: Morphine 4 MG/ML Syringe IV (14:55)
[2021-08-31 16:39] VITALS: BP 110/71; PULSE 64; RESP 18; O2SAT 99
== END 2021-08-31 17:15 | disposition home or self-care (01) ==
PROVIDERS: Emergency Provider Emergency Medicine; PCP Family Medicine
DX: S70.01XA Contusion of right hip, initial encounter (principal); V03.90XA Pedestrian on foot injured in collision with car, pick-up truck or van, unspecified whether traffic or nontraffic accident, initial encounter; Y93.89 Activity, other specified; Y92.410 Unspecified street and highway as the place of occurrence of the external cause; Y99.9 Unspecified external cause status; J45.909 Unspecified asthma, uncomplicated; Z79.51 Long term (current) use of inhaled steroids
CPT/HCPCS: 70450; 71045; 72125; 73502; 73564; 74177; 96374; 96375; 99285; Q9967; A4216; J2405

== ENCOUNTER 2022-10-25 09:56 | Emergency (ER) | payer MEDICAID, SELFPAY ==
[2022-10-25 09:57] VITALS: PULSE 98; RESP 14; TEMP 36.3; O2SAT 99; BMI 38.5
[2022-10-25 10:02] VITALS: O2SAT 100
--- NOTE | 2022-10-25 10:18 | EDS_ITS ---
HPI History of Present Illness Chief Complaint: Shortness of Breath Informant: patient Narrative Narrative: 31-year-old female with a history of asthma presenting to the emergency room with an asthma attack. 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 She states that she was using a chemical to help clean when a strong ammonia smell occurred. She states that she began to cough and wheeze. She gave herself a breathing treatment in her car still has not gotten herself calm down. She is tried additional albuterol MDI without relief. Patient states that she has recently had a viral URI. No fevers. Cough has been nonproductive. PFSH PFSH Medical History Anxiety Asthma Down syndrome, child of prior , currently History of cardiomyopathy History of depression Marijuana use Home Medications budesonide 180 mcg/actuation breath activated powder inhaler (Pulmicort Flexhale r) 1 puff inhalation PRN PRN Asthma 03/26/19 [History Last Taken Unknown] albuterol sulfate 2.5 mg/3 mL (0.083 %) solution for nebulization 2.5 mg continuous nebulization Q8H 12/25/21 [History Last Taken Unknown] albuterol sulfate 90 mcg/actuation aerosol inhaler 2 puff inhalation Q6H 12/25/21 [History Last Taken Unknown] sumatriptan succinate 50 mg tablet 50 mg PO .COMPLEX #9 tabs 12/25/21 [Rx Last Taken Unknown] prednisone 20 mg tablet 60 mg PO DAILY #15 TABLETS 10/25/22 [Rx Last Taken Unknown] Allergy/AdvReac Type Severity Reaction Status Date / Time No Known Allergies Allergy Verified 10/25/22 10:00 Social History adopted: Yes Smoking Status: Never smoker Electronic Cigarette Use: not used second hand exposure: No alcohol intake: never substance use type: does not use ROS ROS ED Constitutional Constitutional ED: Denies chills, fever(s) or weight loss Eyes Eyes: Denies change in vision or diplopia ENT ENT ED: Reports rhinorrhea; Denies ear pain or sore throat Cardiovascular Cardiovascular: Denies chest pain, orthopnea, palpitations or racing heartbeat Respiratory/Chest Respiratory/Chest: Reports cough, dyspnea and dyspnea on exertion; Denies orthopnea Gastrointestinal Gastrointestinal: Denies abdominal pain, diarrhea, nausea or vomiting Genitourinary Genitourinary ED: Denies dysuria, hematuria or urinary frequency Musculoskeletal Musculoskeletal: Denies arthralgias or myalgias Integumentary Denies abscess or rash Neurologic Neurologic: Denies headache(s) or weakness Psychiatric Psychiatric: Denies anxiety, depression, suicidal ideation or suicidal thoughts Endocrine Endocrinology: Denies polydipsia, polyphagia or polyuria Allergic/Immunologic Allergic/Immunologic ED: Denies mouth swelling, tongue swelling or urticaria EXAM Physical Exam Const Vital Signs: 10/25/22 09:57 10/25/22 10:02 10/25/22 10:38 Temperature 97.4 F L Temperature Source Temporal Pulse Rate 98 96 Respiratory Rate 14 20 H Respiratory Effort Short of Breath Respiratory Depth Shallow Respiratory Pattern Tachypnea Normal Pulse Ox 99 Oxygen Delivery Method Room Air Room Air 10/25/22 11:00 Temperature Temperature Source Pulse Rate 113 H Respiratory Rate Respiratory Effort Respiratory Depth Respiratory Pattern Pulse Ox 100 Oxygen Delivery Method Room Air Positive well nourished and well developed General Appearance ED: well developed HEENT Reports normocephalic, head/scalp atraumatic and moist mucous membranes Eyes PERRL and EOMs intact bilaterally Neck no lymphadenopathy, supple and no JVD Resp normal respiratory effort Auscultation: wheezes scattered wheezes and diminished lung sounds Cardio regular rate, regular rhythm and no murmurs GI normal to inspection, nondistended, normoactive bowel sounds and non-tender Palpation: soft Back/Spine no CVA tenderness and normal ROM Extremity normal to inspection General Extremety ED: Negative for edema General Extremity: Negative for edema Neuro oriented x3 and CN's II-XII intact bilaterally Sensorium / Orientation: alert Motor Exam: strength 5/5 throughout Psych mental status grossly normal Mood & Affect: Negative for depressed or tearful Skin no rashes or lesions noted and no wounds MDM MDM MDM Narrative Medical decision making narrative: Patient received a DuoNeb and albuterol nebulizer. She also received a dose of prednisone. We will continue prednisone at home. The patient developed what appeared to be a spasm of her right lower intercostal space. Toradol and Flexeril was given. She is improved. Follow-up with her doctor return if worsening or concerns Discharge Plan Triage Chief Complaint: Shortness of Breath ED Provider: [place],Tung Dx/Rx/DC Orders Clinical Impression: Acute asthma exacerbation Instructions: ED Asthma, Acute (Adult) Prescriptions: New prednisone 20 mg tablet 60 mg PO DAILY Qty: 15 0RF No Action albuterol sulfate 2.5 mg /3 mL (0.083 %) solution for nebulization 2.5 mg continuous nebulization Q8H Label Comments: inhale contents of 1 vial ( 3 milliliters ) in nebulizer by mouth... (REFER TO PRESCRIPTION NOTES). albuterol sulfate 90 mcg/actuation HFA aerosol inhaler 2 puff inhalation Q6H Label Comments: inhale 2 puffs by mouth and INTO THE LUNGS every 6 hours if neede... (REFER TO PRESCRIPTION NOTES). sumatriptan succinate 50 mg tablet 50 mg PO .COMPLEX Qty: 9 3RF Rx Instructions: 50 mg PO every two hours as needed for headache up to two tablets per day Pulmicort Flexhaler 1 PUFF inhaler 1 puff inhalation PRN PRN (Reason: Asthma) Primary Care Provider: Ming Maldonado Referrals: Ming Maldonado MD [Primary Care Provider] - As Needed Disposition Disposition: Home, Self Care
[2022-10-25] MEDS: Albuterol 2.5 MG/3 ML VIAL.NEB. INHALATION (10:28)
[2022-10-25] MEDS: Ipratropium/Albuterol Sulfate 3 ML AMPUL.NEB INHALATION (10:28)
[2022-10-25 10:38] VITALS: PULSE 96; RESP 20
[2022-10-25] MEDS: predniSONE 20 MG Tablet 60 MG PO (10:45)
[2022-10-25 11:00] VITALS: PULSE 113; O2SAT 100
[2022-10-25] MEDS: cycloBENZAPRine HCl 10 MG Tablet PO (11:27)
[2022-10-25] MEDS: Ketorolac 60 MG/2 ML Vial IM (11:28)
== END 2022-10-25 12:16 | disposition home or self-care (01) ==
PROVIDERS: Emergency Provider Emergency Medicine; PCP Family Medicine; Visit Provider Emergency Medicine
DX: J45.901 Unspecified asthma with (acute) exacerbation (principal)
CPT/HCPCS: 94640; 96372; 99284

== ENCOUNTER 2023-06-22 10:25 | Emergency (ER) | payer MEDICAID, SELFPAY ==
[2023-06-22 10:26] VITALS: BP 122/76; PULSE 86; RESP 18; TEMP 36.1; O2SAT 100; BMI 35.4
--- NOTE | 2023-06-22 10:36 | EX.ED.DYSGE1 ---
HPI <MARSHALL Carlisle - Last Filed: 06/22/23 12:09> History of Present Illness Chief Complaint: Nausea/Vomiting Narrative Narrative: 32-year-old female states this is the fourth day of nausea and vomiting. She cannot keep down any fluids or food. At this point she states she just dry heaving and today started to feel weak and lightheaded. She has abdominal cramping but no significant pain. She states she has IBS and has 3-4 bowel movements every morning and has had no change. No melena or hematochezia. No urinary symptoms. She is due for her menstrual cycle this upcoming week. She denies abdominal surgical history. She drinks approximately 6 margaritas a week. PFSH <MARSHALL Carlisle - Last Filed: 06/22/23 12:09> PFSH Medical History Anxiety Asthma Down syndrome, child of prior , currently History of cardiomyopathy History of depression Marijuana use Home Medications budesonide 180 mcg/actuation breath activated powder inhaler (Pulmicort Flexhaler) 1 puff inhalation PRN PRN Asthma 03/26/19 [History Last Taken Unknown] albuterol sulfate 2.5 mg/3 mL (0.083 %) solution for nebulization 2.5 mg continuous nebulization Q8H 12/25/21 [History Last Taken Unknown] albuterol sulfate 90 mcg/actuation aerosol inhaler 2 puff inhalation Q6H 12/25/21 [History Last Taken Unknown] sumatriptan succinate 50 mg tablet 50 mg PO .COMPLEX #9 tabs 12/25/21 [Rx Last Taken Unknown] prednisone 20 mg tablet 60 mg (3 x 20 mg) PO DAILY #15 TABLETS 10/25/22 [Rx Last Taken Unknown] famotidine 20 mg tablet (Pepcid) 20 mg PO BID PRN epigastric pain #10 tabs 06/22/23 [Rx Last Taken Unknown] ondansetron 4 mg disintegrating tablet 4 mg PO Q8H PRN PRN Nausea #14 tabs 06/22/23 [Rx Last Taken Unknown] Allergy/AdvReac Type Severity Reaction Status Date / Time No Known Allergies Allergy Verified 10/25/22 10:00 Social History adopted: Yes Smoking Status: Never smoker Electronic Cigarette Use: not used second hand exposure: No alcohol intake: never substance use type: does not use ROS <MARSHALL Carlisle - Last Filed: 06/22/23 12:09> ROS ED ROS Narrative Constitutional: Negative for fever, chills, malaise. CVS: Negative for palpitations, chest pain, syncope. Respiratory: Negative for shortness of breath, cough. GI: Positive for nausea, vomiting. Negative for abdominal pain, diarrhea, constipation, melena, hematochezia. : Negative for dysuria, hematuria or frequency. Neuro: Negative for headache. EXAM <MARSHALL Carlisle Last Filed: 06/22/23 12:09> Physical Exam Narrative Exam Narrative: CONST: Patient sitting in no acute distress. EYES: Normal inspection. ENT: Normal inspection, slightly dry mucous membranes. NECK: Normal inspection. RESP: No respiratory distress, CTAB. CVS: Regular rate and rhythm, no murmur, no gallop. ABD: Soft with mild generalized tenderness, no guarding or rebound, nondistended. SKIN: Color normal, no rash, warm, dry, intact. EXTREMITIES: Normal appearance, no pedal edema. NEURO: Oriented x4. PSYCH: Normal affect. Const Vital Signs: 06/22/23 10:26 06/22/23 12:11 Temperature 96.9 F L Temperature Source Temporal Pulse Rate 86 65 Respiratory Rate 18 16 Blood Pressure 122/76 H 118/75 Blood Pressure Mean 91 Pulse Ox 100 98 Oxygen Delivery Method Room Air <Dr. Michoacano Davis DO - Last Filed: 06/22/23 12:17> Physical Exam Const Vital Signs: 06/22/23 10:26 06/22/23 12:11 Temperature 96.9 F L Temperature Source Temporal Pulse Rate 86 65 Respiratory Rate 18 16 Blood Pressure 122/76 H 118/75 Blood Pressure Mean 91 Pulse Ox 100 98 Oxygen Delivery Method Room Air MDM <MARSHALL Carlisle - Last Filed: 06/22/23 12:09> MDM MDM Narrative Medical decision making narrative: Patient has had 4 days of nausea and vomiting and feels dehydrated. She appears well and nontoxic. Vital signs are within normal limits. She is slightly dry mucous membranes and a benign abdominal exam. She was given IV fluids and Zofran and labs obtained. BMP within normal limits and test is negative. Based on her abdominal exam I do not think she needs a CT scan. She is feeling improved is able to tolerate p.o. intake after treatment here. I prescribed Pepcid and Zofran and discussed return precautions and she was discharged in stable condition. Differential: Viral illness, GERD, gastritis, less likely cholecystitis or appendicitis Lab Data Attestation: I reviewed the patient's lab results. Labs: Laboratory Results - last 24 hr 06/22/23 10:50 Sodium 138 Potassium 3.7 Chloride 109 H Carbon Dioxide 21.0 Anion Gap 8 BUN 9 Creatinine 0.75 Estim Creat Clear Calc 91.27 Est GFR (MDRD) Af Amer 113 Est GFR (MDRD) Non-Af 94 BUN/Creatinine Ratio 12.0 Glucose 107 H Calcium 9.1 Serum , Qual NEGATIVE <Dr. Michoacano Davis, DO - Last Filed: 06/22/23 12:17> [facility] MDM Narrative Medical decision making narrative: Patient has had 4 days of nausea and vomiting and feels dehydrated. She appears well and nontoxic. Vital signs are within normal limits. She is slightly dry mucous membranes and a benign abdominal exam. She was given IV fluids and Zofran and labs obtained. BMP within normal limits and test is negative. Based on her abdominal exam I do not think she needs a CT scan. She is feeling improved is able to tolerate p.o. intake after treatment here. I prescribed Pepcid and Zofran and discussed return precautions and she was discharged in stable condition. Differential: Dehydration, electrolyte abnormality, viral illness, GERD, gastritis, less likely cholecystitis or appendicitis This patient was seen with a PA/INHALATION THERAPY TEACHER Individually assessed they patient including history and physical. I have reviewed everything on the chart that is available and agree with the documentation provided by the PA/INHALATION THERAPY TEACHER including discussion about the assessment, treatment plan, discussion, and return precautions. Patient presented with 4 days of nausea and vomiting. She has diffuse crampy abdominal pain but her abdominal exam is benign. Vital signs are stable she is afebrile. Obtain a BMP to assess for dehydration and electrolyte maladies and this was normal. Patient medicated with Zofran and given IV fluids and on reevaluation she is feeling much better. To be discharged home with Pepcid and Zofran. Turn precautions discussed. Lab Data Labs: Laboratory Results - last 24 hr 08/06/23 10:50 Sodium 138 Potassium 3.7 Chloride 109 H Carbon Dioxide 21.0 Anion Gap 8 BUN 9 Creatinine 0.75 Estim Creat Clear Calc 91.27 Est GFR (MDRD) Af Amer 113 Est GFR (MDRD) Non-Af 94 BUN/Creatinine Ratio 12.0 Glucose 107 H Calcium 9.1 Serum , Qual NEGATIVE Discharge Plan Triage Chief Complaint: Nausea/Vomiting ED Midlevel Provider: Francesca Davey ED Provider: Michoacano Davis Dx/Rx/DC Orders Clinical Impression: Nausea and vomiting Instructions: ED Vomiting (Adult) Prescriptions: New ondansetron 4 mg tablet,disintegrating 4 mg PO Q8H PRN PRN (Reason: Nausea) Qty: 14 0RF famotidine [Pepcid] 20 mg tablet 20 mg PO BID PRN (Reason: epigastric pain) Qty: 10 0RF No Action albuterol sulfate 2.5 mg /3 mL (0.083 %) solution for nebulization 2.5 mg continuous nebulization Q8H Patient Comments: inhale contents of 1 vial ( 3 milliliters ) in nebulizer by mouth... (REFER TO PRESCRIPTION NOTES). albuterol sulfate 90 mcg/actuation HFA aerosol inhaler 2 puff inhalation Q6H Patient Comments: inhale 2 puffs by mouth and INTO THE LUNGS every 6 hours if neede... (REFER TO PRESCRIPTION NOTES). sumatriptan succinate 50 mg tablet 50 mg PO .COMPLEX Qty: 9 3RF Rx Instructions: 50 mg PO every two hours as needed for headache up to two tablets per day Pulmicort Flexhaler 1 PUFF inhaler 1 puff inhalation PRN PRN (Reason: Asthma) prednisone 20 mg tablet 60 mg PO DAILY Qty: 15 0RF Primary Care Provider: Ming Maldonado Referrals: Ming Maldonado MD [[facility]] - Activity Restrictions/Additional Instructions: Use the nausea and vomiting medication as needed and drink small sips of fluid to stay hydrated. Eat a bland diet until you are feeling improved. If symptoms worsen come back to the ER. Disposition Disposition: Home, Self Care
[2023-06-22] MEDS: 0.9% Normal Saline 1,000 ML 999 ML IV (10:53)
[2023-06-22] MEDS: Ondansetron 4 MG/2 ML Vial IV (10:53)
[2023-06-22 11:10] LABS: Internal QC Validated? YES +Cl - CLEAR BKGD; Pregnancy, Serum, hCG Quali. NEGATIVE Negative
[2023-06-22 11:15] LABS: Anion Gap 8 (5-15); BUN 9 mg/dL (7-18); Calcium,Total 9.1 mg/dL (8.5-10.1); Chloride 109 mmol/L (98-107); Creatinine, Serum 0.75 mg/dL (0.55-1.02); EST Glomerular Filtration Rate 94 mL/min (>60); Est Glom Filt Rate - Afr Amer 113 mL/min (>60); Estimated Creatinine Clearance 91.27 ml/min; Glucose 107 mg/dL (74-106); Potassium 3.7 mmol/L (3.5-5.1); Sodium Level 138 mmol/L (136-145)
[2023-06-22 12:11] VITALS: BP 118/75; PULSE 65; RESP 16; O2SAT 98
== END 2023-06-22 12:16 | disposition home or self-care (01) ==
PROVIDERS: Physician Assistant; Emergency Provider Student in an Organized Health Care Education/Training Program; PCP Family Medicine; Visit Provider Student in an Organized Health Care Education/Training Program
DX: R11.2 Nausea with vomiting, unspecified (principal); R10.9 Unspecified abdominal pain; J45.909 Unspecified asthma, uncomplicated
CPT/HCPCS: 80048; 84703; 96361; 96374; 99282; J2405

== ENCOUNTER 2024-01-09 08:31 | Day surgery (SDC) | payer MEDICAID, SELFPAY ==
--- NOTE | 2024-01-07 17:13 | PCM.HP.BLA ---
History and Physical Date of Admission: 01/09/24 Pre-Op History and Physical ? HPI: The patient is a 33 year old female presenting for sterilization consultation and pre-operative visit. She is scheduled for laparoscopic bilateral salpingectomy, for desires sterilization on 01/09/24. Procedure discussed along with risks, benefits and complications. Other alternatives discussed for management. Consent form signed? Yes. ? ? PAST MEDICAL HISTORY PAST MEDICAL HISTORY Diagnosis Date ? ADD (attention deficit disorder) ? ? Anxiety ? ? Asthma ? ? Chlamydia 2010 ? Congestive heart failure, unspecified 10/05/2007 ? 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 Depression ? ? Diabetes, gestational ? ? GERD (gastroesophageal reflux disease) ? ? Hx of gestational diabetes in prior , currently 08/03/2018 ? CHF 10/29/2007 ? depression ? ? ? PAST SURGICAL HISTORY PAST SURGICAL HISTORY Procedure Laterality Date ? INSERT INTRAUTERINE DEVIC ? 2010 ? INSERT INTRAUTERINE DEVICE ? 02/08/09 ? Mirena,removed 08/2009 ? ? ? CURRENT MEDICATIONS Current Outpatient Medications Medication Sig Dispense Refill ? ibuprofen (MOTRIN) 600 mg tablet Take 1 tablet by mouth every 6 hours as needed for pain. FOR PAIN. 30 tablet 0 ? famotidine (PEPCID) 20 mg tablet Take by mouth. ? ? ? albuterol HFA (PROVENTIL HFA, VENTOLIN HFA) 90 mcg/actuation inhaler Inhale 2 Puffs as instructed every 6 hours as needed for wheezing/shortness of breath. 18 g 5 ? montelukast (SINGULAIR) 10 mg tablet Take 1 tablet by mouth daily at bedtime. 30 tablet 11 ? budesonide-formoterol (SYMBICORT) 80-4.5 mcg/actuation inhaler Inhale 2 Puffs as instructed twice daily. 10.2 g 11 ? albuterol (PROVENTIL) 2.5 mg /3 mL (0.083 %) nebulizer solution Use 3 mL via nebulizer every 6 hours as needed. 1 vial contains 3 ml. 300 mL 5 ? SUMAtriptan (IMITREX) 50 mg tablet Take 2 tablets by mouth as needed. If headache does not resolve, take an additional 2 tablets by mouth > 2 hrs after first dose. 9 tablet 1 ? COMPOUNDED PRESCRIPTION NEBULIZER FOR HOME USE. DX: J45.901 1 Each 0 ? No current facility-administered medications for this visit. ? ? ALLERGIES: Milk and Milk Containing Products (Dairy) ? PERSONAL HISTORY: SOCIAL HISTORY Social History ? Tobacco Use ? Smoking status: Never ? Smokeless tobacco: Never ? Tobacco comments: ? ? Patient used to live with a smoker. Vaping Use ? Vaping Use: Never used Substance Use Topics ? Alcohol use: No ? Drug use: Not Currently ? ? Types: Marijuana ? ? Comment: Rx marijuana, let card ? FAMILY HISTORY: FAMILY HISTORY FAMILY HISTORY Adopted: Yes Problem Relation Age of Onset ? other (unknown) Mother ? ? PATIENT ADOPTED ? other (unknown) Father ? ? other (Down's syndrome) Son ? ? None Sister ? ? ? REVIEW OF SYMPTOMS: negative except as noted above PHYSICAL EXAMINATION: ? VITALS: Blood pressure 104/62, weight 205 lb (93 kg), last menstrual period 12/17/2023, not currently . ? GENERAL: The patient is well nourished, well hydrated in no acute distress. , The patient is oriented to time, place, and person. NECK: full range of motion ? ? IMPRESSION: 33yo desires permanent sterilization ? PLAN: Laparoscopic bilateral salpingectomy ? Pt has been counseled on risks/benefits and alternatives of surgery including but not limited to anesthesia, bleeding, infection, injury to pelvic structures including bowel, bladder, ureters and vessels. Pt wishes to proceed with surgery at this time. Risk of regret reviewed. TItle 19 previously signed ? Pre and post op instructions reviewed. ? Will get another HCG today ? ? I have reviewed and updated past medical and surgical history, medications and allergies Claudia Frederick MD Office Visit on 12/31/2023 Office Visit on 12/31/2023 Note shared with patient
[2024-01-09] VITALS (9 sets, daily range): BP systolic 102–124; BP diastolic 55–75; PULSE 59–77; RESP 16–18; TEMP 36.2–36.6; O2SAT 95–100; BMI 35.3
[2024-01-09] MEDS: Lactated Ringers 1,000 ML 15 ML IV (09:02)
[2024-01-09 09:03] LABS: Internal QC Validated? YES +Cl - CLEAR BKGD; Pregnancy, Urine Negative Negative
[2024-01-09 09:09] LABS: Hemoglobin 14.2 g/dL (12.0-15.0); Mean Corp Hgb Conc 32.3 g/dL (32-36); Mean Corpuscular Hgb 27.6 pg (27.0-32.0); Mean Corpuscular Volume 85.4 fL (81-99); Mean Platelet Vol. 10.7 fl (6.2-12.0); Platelet Count 352 K/mm3 (150-450); RBC Distribution Width CV 14.5 % (11.6-14.6); RBC Distribution Width SD 45.6 fl (35.1-43.9); Red Blood Count 5.15 M/mm3 (4.2-5.4); White Blood Count 8.6 K/mm3 (4.4-11.0)
--- NOTE | 2024-01-09 09:35 | FALS_PTH ---
PATHOLOGY RESULTS PATIENT: DARVIN TREJO LOC: [facility] – [place] U#:[id number] AGE/SX: 33/F ROOM: RE01/09/[address]: Dr. Claudia Frederick MD : [id number] BED: DIS: 01/09/2024 SPEC #: [id number] RECD: 01/09/24 13:36 STATUS: MITZY KHAN #: [id number] BRITT: 01/09/24 09:[address]: Claudia Frederick DEPT: SURGICAL PATHOLOGY RECD BY: Waleska Ray ENTERED: 01/12/24 10:06 SP TYPE: FALL TUBES OTHR DR: Dr. Ming Maldonado MD Tissues: Fallopian tube Procedures: Surgery Specimen Level II HEADER OPERATION: Laparoscopic salpingectomy PRE-OP DIAGNOSIS: Elective sterilization TISSUE SUBMITTED: Bilateral fallopian tubes MICROSCOPIC DIAGNOSIS Right and left fallopian tubes, bilateral salpingectomies: Complete cross-sections of bilateral fallopian tubes. See comment. AM:sagar 01/13/2024 COMMENT One fallopian tube is associated fibrinopurulent material of unknown origin. Clinical correlation is suggested. MICROSCOPIC DESCRIPTION Slides are reviewed. GROSS DESCRIPTION Received in fixative is one container labeled with the patient's name and designated bilateral fallopian tubes. The specimen consists of two fallopian tubes with an average length of 5.5 cm and has an average diameter of 0.6 cm. Both fallopian tubes have normal fimbriated ends. No mass lesions are identified. Occupational Health And Safety Officer sections are submitted in two cassettes with each cassette containing one fallopian tube. / AM:sagar 01/12/2024 TC:2 CPT: 80780 x2
[2024-01-09] MEDS: Bupivacaine 0.5% PF 10 ML VIAL (11:05)
--- NOTE | 2024-01-09 11:10 | DCINST_ITS ---
Discharge Instructions Diet Discharge Diet: No restrictions Activity May resume sexual activity in: 2 weeks Lifting Restrictions: 20-25 lbs Dressing / Incision Call your doctor if your incision/area has: Continuous Slow Oozing, Sudden Increased Bleeding, Increased Pain/ Swelling, Increased Redness, Foul Smelling Discharge and Swelling at the incision site Call your doctor if you observe: Fever of 101 or Higher, Inability to urinate, Inability to have a bowel movement, Using more than 1 pad per hour and Uncontrolled pain Additional Dressing/Incision Instructions:: You have skin glue over your incision sites, do not pick off. You may shower and let the soap and water run over the incision sites and dab dry. Follow Up Care Please Follow Up With: Claudia Tarqi MD When: 1-2 weeks post OP if you need an appointment please call [phone] Test Results: Test results from this visit will be discussed in further detail at your follow- up appointment, if applicable. Discharge Plan Admission Attending Provider: Claudia Tariq Primary Care Provider: Ming Maldonado Discharge Orders/Prescriptions Prescriptions: No Action albuterol sulfate 2.5 mg /3 mL (0.083 %) solution for nebulization 2.5 mg continuous nebulization Q8H Patient Comments: inhale contents of 1 vial ( 3 milliliters ) in nebulizer by mouth... (REFER TO PRESCRIPTION NOTES). albuterol sulfate 90 mcg/actuation HFA aerosol inhaler 2 puff inhalation Q6H Patient Comments: inhale 2 puffs by mouth and INTO THE LUNGS every 6 hours if neede... (REFER TO PRESCRIPTION NOTES). sumatriptan succinate 50 mg tablet 50 mg PO .COMPLEX Qty: 9 3RF Rx Instructions: 50 mg PO every two hours as needed for headache up to two tablets per day Pulmicort Flexhaler 1 PUFF inhaler 1 puff inhalation PRN PRN (Reason: Asthma) Referrals / Follow Up: Ming Maldonado MD [Primary Care Provider] - Disposition Disposition (needs filled in before D/C Order can be placed): Home, Self Care
--- NOTE | 2024-01-09 11:12 | OP.PCM_ITS ---
Report of Operation Date of Procedure: 01/09/24 Pre-Operative Diagnosis: desires sterilization Post-Operative Diagnosis: same Surgery/Procedure Performed:: laparoscopic bilateral salpingectomy Description of Surgical Findings:: normal tubes and ovaries bilaterally. Omental adhesions to Anterior right lateral abdominal wall. Taken down to be able to insert RLQ port. Surgeon: Claudia Tariq environmental health aide: None Type of Anesthesia: General and Local Specimen's removed: bilateral fallopian tubes Estimated Blood Loss (mL): <5cc Fluids Replaced: 800cc Description of Procedure: After informed consent was obtained patient was taken to the operating room she was placed in supine position she was given anesthesia. She was then placed in the [facility] stirrups and she was prepped and draped in normal sterile fashion. Bladder was drained prior to the start of procedure. At this time attention was turned to the vaginal portion where weighted speculum placed at posterior fornix vagina single-tooth tenaculum was used to gently grasp the internal the cervix. uterus was gently sounded to approximately 8cm. Uterine manipulator was placed without difficulty. Legs then placed in parallel with the abdomen the tenaculum and the weighted speculum were removed. 2 towel clamps were placed at level of umbilicus. Marcaine was injected infraumbilical and a small incision was made. The 5 mm trocar was placed under direct visualization. CO2 gas was used to insufflate the intra-abdominal cavity. Upon inspection no gross abnormalities appreciated- the uterus tubes and ovaries appeared to be normal. Omental adhesions to right anterior abdominal wall . At this time then the LLQ port was placed First Marcaine was injected and small incision was made a knife and the 5 mm trocar was placed. Enseal was used to take down adhesions in clear spaces- once adhesions taken down the RLQ port was placed in the same fashion as LLQ - under direct visualization. At this time then tubes were traced back to the fimbriated ends. Enseal was used to coagulate and ligate along mesosalpinx bilaterally until tubes removed completely. Good hemostasis was appreciated. At this time procedure was deemed complete successful. The gas was desufflated on from the intra-abdominal cavity. The trochars were removed. Skin was closed using 4-0 Monocryl in a subcutaneous fashion. Dermabond glue was placed. Instrument lap and needle counts were correct ?2. The uterine manipulator was removed. Vaginal sweep was performed it was negative. There were no complications anticipated normal postoperative course for this patient. Grafts/Implants Used: none Procedure Start Time: 10:55 Procedure Stop Time: 11:13 Complications none Admit VTE Documentation VTE Present on Admission: Yes VTE Mechan Device Prophylaxis: SCD's VTE Pharm Prophylaxis ordered?: No Reason prophylaxis not ordered:: Procedure Not Indicated
[2024-01-09] MEDS: Oxycodone/Apap 5/325 Tablet PO (12:36)
== END 2024-01-09 13:25 | disposition home or self-care (01) ==
LOC: SDC 08:32 → AC 08:34
PROVIDERS: PCP Family Medicine; Referring Provider Obstetrics & Gynecology; Visit Provider Obstetrics & Gynecology
PROC: (CPT 58661; principal; 2024-01-09 09:20)
DX: Z30.2 Encounter for sterilization (principal); Z87.891 Personal history of nicotine dependence; Z86.79 Personal history of other diseases of the circulatory system; J45.909 Unspecified asthma, uncomplicated; K21.9 Gastro-esophageal reflux disease without esophagitis; K66.0 Peritoneal adhesions (postprocedural) (postinfection)
CPT/HCPCS: 58661; 49329; 00840; 81025; 85027; 88302; J7120; C1760; J2405